=== PATIENT | female | born 1975 | race Caucasian/White ===

== ENCOUNTER → 2021-04-09 11:02 | Outpatient (CLI) | payer OTHER ==
[~2021-04-09 11:02] MED LIST: ZOLOFT25 MG PO
== END | disposition home or self-care (01) ==
LOC: LAB 11:02
PROVIDERS: ATTEND Obstetrics & Gynecology
DX: N91.1 Secondary amenorrhea (principal)

== ENCOUNTER 2021-04-12 10:13 | Outpatient (CLI) | payer OTHER ==
[2021-04-30] MEDS ORDERED: ZOLOFT25 MG PO (13:33)
== END 2021-04-12 10:20 | disposition home or self-care (01) ==
LOC: LAB 10:13
PROVIDERS: ATTEND Obstetrics & Gynecology
DX: N91.1 Secondary amenorrhea (principal)

== ENCOUNTER 2021-05-05 07:06 | Day surgery (SDC) | payer OTHER | END 2021-05-05 16:20 | disposition home or self-care (01) | LOC: CIR.AMB 07:06 | PROVIDERS: ATTEND Obstetrics & Gynecology | DX: N84.0 Polyp of corpus uteri (principal); Z20.822 Contact with and (suspected) exposure to COVID-19 ==